=== PATIENT | male | born 1975 | race Two or more races ===

== ENCOUNTER 2024-02-27 05:30 | Day surgery (SDC) | payer OTHER ==
[2024-02-26 09:36] LABS: HEMATOCRIT 38.8 % (39.0-48.0); HEMOGLOBIN 13.2 g/dL (13-16.00); MEAN CORPUSCULAR HEMOGLOBIN 29.2 pg (27.00-32.0); PLATELET COUNT 269 K/uL (150-450); RED BLOOD COUNT 4.51 M/uL (4.00-6.00); RED CELL DISTRIBUTION WIDTH 14.5 % (11.5-14.5)
[2024-02-26 09:43] LABS: PH,URINE 6.5 (5.0-8.0); URINE APPEARANCE Clear; URINE BILIRRUBIN Negative (NEGATIVE); URINE BLOOD Negative; URINE COLOR Yellow; URINE GLUCOSE Negative (NEGATIVE); URINE KETONE Negative (NEGATIVE); URINE LEUKOCYTE Negative; URINE NITRATE Negative; URINE PROTEIN Negative (NEGATIVE); URINE UROBILINOGEN 0.2 E.U./dl
[2024-02-26 09:49] LABS: URINE EPITHELIAL CELLS 1.8 uL (0.0-38.8); URINE RBC 5.6 uL (0.0-20.8); URINE WBC 2.6 uL (0.0-23.2)
[2024-02-26 09:58] LABS: URINE BACTERIA 3.7 uL (0.0-1933); URINE CAST 0.61 uL (0.0-1.40)
[2024-02-26 10:23] LABS: INR 1.05; PARTIAL THROMBOPLASTIN TIME 30.1 SECONDS (22.0-34.0); PROTHROMBIN TIME 11.4 SECONDS (9.0-11.5)
[2024-02-26 10:34] LABS: ALBUMIN 4.4 gm/dL (3.4-5.0); BILIRUBIN TOTAL 0.77 mg/dL (0.3-1.2); CALCIUM 9.2 mg/dL (8.5-10.1); CREATININE SERUM 0.85 mg/dL (0.70-1.30); GFR 96.2; GLOBULINA 2.9 G/DL (2.4-3.5); POTASSIUM 4.15 mEq/L (3.5-5.1); TOTAL PROTEIN 7.3 gm/dL (6.4-8.2)
[~2024-02-27] VITALS: Ht 167.6 cm; Wt 68.0 kg
[~2024-02-27 05:30] MED LIST: CLARITIN10 M1 PO; COZAAR25 MG PO; D3-5000125 MCG PO; LYRICA100 MG PO; MONTELUKAST SOD10 MG PO; TOPROL XL25 M1 PO
[2024-02-27] MEDS ORDERED: BUPIVACAINE HCL/MPF 0.5% 30ML VIAL ONE (09:51)
[2024-02-27] MEDS ORDERED: LIDOCAINE HCL 1%/EPINEPHRINE 20ML VIAL IJ ONE (09:51)
[2024-02-27] MEDS ORDERED: KETOROLAC TROMETHAMINE 30 MG VIAL ONE ×2 (09:51→09:52)
[2024-02-27] MEDS ORDERED: CLINDAMYCIN PHOSPHATE 150 MG/ML (900mg) ONE (09:51)
[2024-02-27] MEDS ORDERED: SUGAMMADEX SODIUM 200 MG/2 ML VIAL IV ONE (10:48)
== END 2024-02-27 13:35 | disposition home or self-care (01) ==
LOC: CIR.AMB 05:30
PROVIDERS: ATTEND Orthopaedic Surgery
DX: M75.122 Complete rotator cuff tear or rupture of left shoulder, not specified as traumatic (principal); M75.41 Impingement syndrome of right shoulder; M24.112 Other articular cartilage disorders, left shoulder; M75.22 Bicipital tendinitis, left shoulder; Z88.0 Allergy status to penicillin; G62.9 Polyneuropathy, unspecified; F41.9 Anxiety disorder, unspecified; I10 Essential (primary) hypertension